=== PATIENT | female | born 1995 | race Caucasian/White ===

== ENCOUNTER 2018-11-05 15:28 | Emergency (ER) | payer OTHER ==
[2018-11-05] MEDS ORDERED: MORPHINE 2 MG/ML SYR IVP ONE (16:10)
[2018-11-05] MEDS ORDERED: NS(*) 0.9% 1000 ML BAG 1,000 ML IV ONE ×2 (16:10→18:25)
[2018-11-05] MEDS ORDERED: ONDANSETRON 4 MG/2 ML VIAL IVP ONE (16:10)
--- NOTE | 2018-11-05 16:11 | ER Report ---
History and Physical Time Seen By MD: 16:05 Hx. of Stated Complaint: headache, general body aches starting sunday. has gotten worse. today she threw up in class. HPI/ROS CHIEF COMPLAINT: vomiting, abdominal pain, multiple complaints. HISTORY OF PRESENT ILLNESS: This is a 23 year old female. She has been feeling poorly for a few days, but today had abdominal pain, right lower quadrant, which has been worsening. Associated with vomiting today, cannot keep fluids down, now with dry heaving. Is on her period and has endometriosis. Having general body aches and headache as well. Mild cough recent and mild shortness of breath. No sore throat. Has no dysuria or urinary frequency. Has felt feverish with chills. No chest pain. Normal bowels. REVIEW OF SYSTEMS: Constitutional: As above. Eyes: No vision changes. ENT: No sore throat. No congestion. Cardiovascular: No chest pain. Respiratory: As above. Gastrointestinal: As above. Genitourinary: As above. Musculoskeletal: As above. Skin: No rashes. Neurological: No numbness. No weakness. Allergies: Coded Allergies: No Known Drug Allergies (Unverified , 11/05/18) Home Meds Active Scripts Ondansetron 4 Mg Odt (ONDANSETRON 4 MG ODT) 4 Mg Tab.rapdis, 4 MG PO Q6H PRN for NAUSEA/VOMITING, #20 TAB 0 Refills Prov:MASOOD KWON MD 11/05/18 Hydrocodone Bit/Acetaminophen (HYDROCODON-ACETAMINOPHEN 5-325) 1 Each Tablet, 1 EACH PO Q4H PRN for PAIN, #12 TAB 0 Refills Prov:MASOOD KWON MD 11/05/18 Reviewed Nurses Notes: Yes Constitutional Vital Sign - Last 24 Hours 11/05/18 11/05/18 11/05/18 11/05/18 15:39 15:39 16:00 16:30 Temp 102.1 Pulse 146 131 131 Resp 16 18 15 B/P (MAP) 136/95 136/95 (109) 134/89 (104) 109/68 (82) Pulse Ox 93 92 90 O2 Delivery Room Air 11/05/18 11/05/18 11/05/18 11/05/18 16:35 17:30 17:35 18:00 Pulse 129 127 133 Resp 18 17 11 B/P (MAP) 77/63 (68) 103/62 (76) Pulse Ox 92 95 93 11/05/18 11/05/18 18:30 19:30 Pulse 128 118 Resp 21 13 B/P (MAP) 96/70 (79) 129/67 (87) Pulse Ox 93 91 Physical Exam General Appearance: The patient is alert. Mild distress due to pain. Non- toxic in appearance. Eyes: Pupils are equal, round. No pallor, injection or icterus. ENT: Mucous membranes are dry. Normal oral mucosa. Posterior oropharynx is normal. Neck: Supple and non tender. No lymphadenopathy. Respiratory: Lungs are clear to auscultation. Cardiovascular: Regular rate and rhythm. No murmurs, gallops or rubs. Normal ca pillary refill. No edema. Gastrointestinal: Abdomen is soft, tender mainly in right lower abdomen. Nondistended. Guarding but no rebound. Normal active bowel sounds. Neurological: Alert and oriented x3. No focal neurologic deficits Skin: Warm and dry. No rashes. Musculoskeletal: Extremities are diffusely tender. No tenderness in palpation of the cervical, thoracic and lumbar spine. DIFFERENTIAL DIAGNOSIS: After history and physical exam, differential diagnosis was considered for a patient with abdominal pain, fever, diffuse muscle aches, concern for infectious etiologies such as a viral syndrome versus appendicitis versus endometriosis pain Medical Decision Making Data Points Result Diagram: 11/05/18 1540 11/05/18 1540 Laboratory Hematology Test 11/05/18 15:40 Red Blood Count 5.17 M/uL (4.17-5.56) Mean Corpuscular Volume 87.6 fL (80.0-96.0) Mean Corpuscular Hemoglobin 29.2 pg (26.0-33.0) Mean Corpuscular Hemoglobin Concent 33.3 g/dL (32.0-36.0) Red Cell Distribution Width 14.8 % (11.5-14.5) Mean Platelet Volume 8.1 fL (7.2-11.1) Neutrophils (%) (Auto) 68.0 % (39.4-72.5) Lymphocytes (%) (Auto) 16.2 % (17.6-49.6) Monocytes (%) (Auto) 14.9 % (4.1-12.4) Eosinophils (%) (Auto) 0.1 % (0.4-6.7) Basophils (%) (Auto) 0.8 % (0.3-1.4) Nucleated RBC Relative Count (auto) 0.1 /100WBC Neutrophils # (Auto) 2.7 K/uL (2.0-7.4) Lymphocytes # (Auto) 0.6 K/uL (1.3-3.6) Monocytes # (Auto) 0.6 K/uL (0.3-1.0) Eosinophils # (Auto) 0.0 K/uL (0.0-0.5) Basophils # (Auto) 0.0 K/uL (0.0-0.1) Nucleated RBC Absolute Count (auto) 0.00 K/uL Urine Color Yellow Urine Clarity Cloudy Urine pH 5.0 pH (4.8-9.5) Urine Specific [place] 1.017 Urine Protein 30 mg/dL (NEGATIVE) Urine Glucose (UA) Negative mg/dL (NEGATIVE) Urine Ketones Negative mg/dL (NEGATIVE) Urine Blood Large (NEGATIVE) Urine Nitrite Negative (NEGATIVE) Urine Bilirubin Negative (NEGATIVE) Urine Urobilinogen Negative mg/dL (0.2-1.9) Urine Leukocyte Esterase Negative (NEGATIVE) Urine RBC 563 /HPF (0-2/HPF) Urine WBC 6 /HPF (0-5/HPF) Urine Squamous Epithelial Cells Many /LPF (</=FEW) Urine Bacteria Many /HPF (NONE-FEW) Urine Mucus Few /HPF (NONE-FEW) Urine Yeast (Budding) Few /HPF Sodium Level 139 mmol/L (137-145) Potassium Level 4.4 mmol/L (3.5-5.0) Chloride Level 109 mmol/L (98-107) Carbon Dioxide Level 20 mmol/L (22-31) Blood Urea Nitrogen 11 mg/dl (7-18) Creatinine 0.90 mg/dl (0.52-1.04) Glomerular Filtration Rate Calc > 60.0 Random Glucose 106 mg/dl (75-110) Lactate 1.7 mmol/L (0.7-2.1) Calcium Level 9.0 mg/dl (8.4-10.2) Total Bilirubin 0.7 mg/dl (0.2-1.3) Aspartate Amino Transf (AST/SGOT) 28 U/L (0-35) Alanine Aminotransferase (ALT/SGPT) 25 U/L (0-56) Alkaline Phosphatase 77 U/L (0-126) Total Protein 7.4 g/dl (6.3-8.2) Albumin 4.7 g/dl (3.5-5.0) Amylase Level 43 U/L (0-110) Lipase 81 U/L (23-300) Human Chorionic Gonadotropin, Qual Negative (NEGATIVE) Influenza Virus Type A (PCR) Negative (NEGATIVE) Influenza Virus Type B (PCR) Negative (NEGATIVE) Chemistry Test 11/05/18 15:40 White Blood Count 4.0 k/uL (4.5-11.0) Red Blood Count 5.17 M/uL (4.17-5.56) Hemoglobin 15.1 g/dL (12.0-16.0) Hematocrit 45.3 % (34.0-47.0) Mean Corpuscular Volume 87.6 fL (80.0-96.0) Mean Corpuscular Hemoglobin 29.2 pg (26.0-33.0) Mean Corpuscular Hemoglobin Concent 33.3 g/dL (32.0-36.0) Red Cell Distribution Width 14.8 % (11.5-14.5) Platelet Count 185 K/uL (150-450) Mean Platelet Volume 8.1 fL (7.2-11.1) Neutrophils (%) (Auto) 68.0 % (39.4-72.5) Lymphocytes (%) (Auto) 16.2 % (17.6-49.6) Monocytes (%) (Auto) 14.9 % (4.1-12.4) Eosinophils (%) (Auto) 0.1 % (0.4-6.7) Basophils (%) (Auto) 0.8 % (0.3-1.4) Nucleated RBC Relative Count (auto) 0.1 /100WBC Neutrophils # (Auto) 2.7 K/uL (2.0-7.4) Lymphocytes # (Auto) 0.6 K/uL (1.3-3.6) Monocytes # (Auto) 0.6 K/uL (0.3-1.0) Eosinophils # (Auto) 0.0 K/uL (0.0-0.5) Basophils # (Auto) 0.0 K/uL (0.0-0.1) Nucleated RBC Absolute Count (auto) 0.00 K/uL Urine Color Yellow Urine Clarity Cloudy Urine pH 5.0 pH (4.8-9.5) Urine Specific [place] 1.017 Urine Protein 30 mg/dL (NEGATIVE) Urine Glucose (UA) Negative mg/dL (NEGATIVE) Urine Ketones Negative mg/dL (NEGATIVE) Urine Blood Large (NEGATIVE) Urine Nitrite Negative (NEGATIVE) Urine Bilirubin Negative (NEGATIVE) Urine Urobilinogen Negative mg/dL (0.2-1.9) Urine Leukocyte Esterase Negative (NEGATIVE) Urine RBC 563 /HPF (0-2/HPF) Urine WBC 6 /HPF (0-5/HPF) Urine Squamous Epithelial Cells Many /LPF (</=FEW) Urine Bacteria Many /HPF (NONE-FEW) Urine Mucus Few /HPF (NONE-FEW) Urine Yeast (Budding) Few /HPF Glomerular Filtration Rate Calc > 60.0 Lactate 1.7 mmol/L (0.7-2.1) Calcium Level 9.0 mg/dl (8.4-10.2) Total Bilirubin 0.7 mg/dl (0.2-1.3) Aspartate Amino Transf (AST/SGOT) 28 U/L (0-35) Alanine Aminotransferase (ALT/SGPT) 25 U/L (0-56) Alkaline Phosphatase 77 U/L (0-126) Total Protein 7.4 g/dl (6.3-8.2) Albumin 4.7 g/dl (3.5-5.0) Amylase Level 43 U/L (0-110) Lipase 81 U/L (23-300) Human Chorionic Gonadotropin, Qual Negative (NEGATIVE) Influenza Virus Type A (PCR) Negative (NEGATIVE) Influenza Virus Type B (PCR) Negative (NEGATIVE) Urinalysis Test 11/05/18 15:40 Urine Color Yellow Urine Clarity Cloudy Urine pH 5.0 pH (4.8-9.5) Urine Specific [place] 1.017 Urine Protein 30 mg/dL (NEGATIVE) Urine Glucose (UA) Negative mg/dL (NEGATIVE) Urine Ketones Negative mg/dL (NEGATIVE) Urine Blood Large (NEGATIVE) Urine Nitrite Negative (NEGATIVE) Urine Bilirubin Negative (NEGATIVE) Urine Urobilinogen Negative mg/dL (0.2-1.9) Urine Leukocyte Esterase Negative (NEGATIVE) Urine RBC 563 /HPF (0-2/HPF) Urine WBC 6 /HPF (0-5/HPF) Urine Squamous Epithelial Cells Many /LPF (</=FEW) Urine Bacteria Many /HPF (NONE-FEW) Urine Mucus Few /HPF (NONE-FEW) Urine Yeast (Budding) Few /HPF Microbiology Microbiology Date/Time Source Procedure Growth Status 11/05/18 15:45 Blood Blood Culture - Preliminary NO GROWTH AFTER 2 DAYS, REINCUBATED Resulted 11/05/18 15:40 Blood Peripheral Draw Blood Culture - Preliminary NO GROWTH AFTER 2 DAYS, REINCUBATED Resulted EKG/Imaging Imaging EXAMINATION: CT abdomen and pelvis with IV contrast HISTORY: Abdominal pain, worse right lower quadrant. TECHNIQUE: Axial CT images of the abdomen and pelvis were obtained with IV contrast, with coronal and sagittal 2D reconstructed images. One of the following dose optimization techniques was utilized in the performance of this exam: Automated exposure control; adjustment of the mA and/or kV according to the patient's size; or use of an iterative reconst ruction technique. Specific details can be referenced in the facility's radiology CT exam operational policy. Contrast: 75 mL of IV Isovue-370. COMPARISON: None. FINDINGS: Liver: Negative. Gallbladder and bile ducts: Negative. Spleen: Negative. Pancreas: Negative. Adrenal glands: Negative. Kidneys: The kidneys enhance normally with normal size and morphology. No hydronephrosis. No definite renal calculi, though sensitivity is reduced by excreted contrast material in the collecting systems. Normal course and caliber of the ureters. Bowel and peritoneum: The small bowel and colon are normal in caliber, without evidence of obstruction or any focal inflammatory process. Normal appendix in the right lower quadrant. No free fluid or free intraperitoneal air. Pelvic structures: Uterus and adnexal structures are grossly unremarkable by CT. No large adnexal cyst in the pelvis. Lymph node assessment: Negative. Vessels: Negative. Musculoskeletal: Negative. Body wall: Negative. Lung bases: Negative. IMPRESSION: 1. No CT evidence of acute intra-abdominal pathology. No specific source of abdominal pain is identified. 2. Normal appendix. Report Dictated By: Donny Argueta MD at 11/05/2018 5:33 PM ED Course/Re-evaluation Clinical Indication for ER IV: Hydration, IV Access ED Course After initial evaluation, the patient did appear a little dehydrated. We gave her a liter of normal saline, Zofran 4 mg IV. Also given morphine 2 mg IV for pain. Labs, urinalysis, CT scan of the abdomen and pelvis obtained. No acute disease noted on CT scan. Signs of dehydration on labs. Reviewed all this with the patient. Patient felt a lot better. Second liter of saline given Decision to Disposition Date: Nov 05, 2018 Decision to Disposition Time: 18:24 Depart Departure Latest Vital Signs Vital Signs Date Time Temp Pulse Resp B/P (MAP) Pulse Ox O2 Delivery O2 Flow Rate FiO2 11/05/18 19:30 118 13 129/67 (87) 91 11/05/18 15:39 102.1 Room Air Impression: Primary Impression: Abdominal pain Condition: Improved Disposition: HOME OR SELF-CARE New Scripts Ondansetron 4 Mg Odt (ONDANSETRON 4 MG ODT) 4 Mg Tab.rapdis 4 MG PO Q6H PRN for NAUSEA/VOMITING, #20 TAB 0 Refills Prov: MASOOD KWON MD 11/05/18 Hydrocodone Bit/Acetaminophen (HYDROCODON-ACETAMINOPHEN 5-325) 1 Each Tablet 1 EACH PO Q4H PRN for PAIN, #12 TAB 0 Refills Prov: MASOOD KWON MD 11/05/18 Patient Instructions: Acute Abdominal Pain (ED) Additional Instructions: Workup today was negative for acute cause of pain and other symptoms. Likely viral syndrome, but could be combined with endometriosis. No sign of appendicitis or other intra-abdominal process. Labs unremarkable. Lortab 5/325, one every 4 hours as needed for severe pain. Zofran 4mg, one every 6 hours as needed for nausea. Ibuprofen 200mg over the counter tablets, take 3 tablets every 8 hours as needed for pain. We usually recommend follow-up with the next 24 to 48 hours if not improving. Follow-up with your regular doctor within the next 1-2 weeks. Consider evaluation by gastroenterology if still having abdominal problems. Return to the ER for worsening fevers, nausea and vomiting, worsening pain. Problem Qualifiers Primary Impression: Abdominal pain Abdominal location: right lower quadrant Qualified Codes: R10.31 - Right lower quadrant pain MASOOD KWON MD Nov 05, 2018 16:11
[2018-11-05 16:25] LABS: PLATELET COUNT, AUTOMATED 185 K/uL (150-450)
[2018-11-05] MEDS ORDERED: IOPAMIDOL 76% 150 ML INFUS BTL 150 ML ONE (16:31)
--- NOTE | 2018-11-05 17:48 | RADIOLOGY IMAGING REPORT ---
FACILITY: [facility] - [place] PATIENT NAME: Veronica Simpson : 1995 MR: [id number] V: [id number] EXAM DATE: ORDERING PHYSICIAN: MASOOD KWON TECHNOLOGIST: Location: [facility] [place] Patient: Veronica Simpson : 1995 Visit/Account:[id number] Date of Sevice: 11/05/2018 EXAMINATION: CT abdomen and pelvis with IV contrast HISTORY: Abdominal pain, worse right lower quadrant. TECHNIQUE: Axial CT images of the abdomen and pelvis were obtained with IV contrast, with coronal a nd sagittal 2D reconstructed images. One of the following dose optimization techniques was utilized in the performance of this exam: Autom ated exposure control; adjustment of the mA and/or kV according to the patient's size; or use of an i terative reconstruction technique. Specific details can be referenced in the facility's radiology C T exam operational policy. Contrast: 75 mL of IV Isovue-370. COMPARISON: None. FINDINGS: Liver: Negative. Gallbladder and bile ducts: Negative. Spleen: Negative. Pancreas: Negative. Adrenal glands: Negative. Kidneys: The kidneys enhance normally with normal size and morphology. No hydronephrosis. No definit e renal calculi, though sensitivity is reduced by excreted contrast material in the collecting system s. Normal course and caliber of the ureters. Bowel and peritoneum: The small bowel and colon are normal in caliber, without evidence of obstructi on or any focal inflammatory process. Normal appendix in the right lower quadrant. No free fluid or f ree intraperitoneal air. Pelvic structures: Uterus and adnexal structures are grossly unremarkable by CT. No large adnexal cyst in the pelvis. Lymph node assessment: Negative. Vessels: Negative. Musculoskeletal: Negative. Body wall: Negative. Lung bases: Negative. IMPRESSION: 1. No CT evidence of acute intra-abdominal pathology. No specific source of abdominal pain is identif ied. 2. Normal appendix. Report Dictated By: Donny Argueta MD at 11/05/2018 5:33 PM Report E-Signed By: Donny Argueta MD at 11/05/2018 5:44 PM WSN:[id number]
[2018-11-05] MEDS ORDERED: ACETAMINOPHEN 500 MG TAB PO ONE (18:25)
[2018-11-05] MEDS ORDERED: LOR5/325 PO (18:29)
[2018-11-05] MEDS ORDERED: ONDA4TAB9 PO (18:29)
[2018-11-05] MEDS ORDERED: ACET/HYDROC 5/325MG TH ER ONLY 2 TAB/BOTTLE PO ONE (18:30)
[2018-11-05] MEDS ORDERED: ONDANSETRON 4 MG ODT TH SL ONE (18:30)
[2018-11-05 19:30] VITALS: BP 129/67
== END 2018-11-05 20:00 | disposition home or self-care (01) ==
LOC: ER 15:49
DX: R10.31 Right lower quadrant pain (principal)
CPT/HCPCS: 74177; 81001; 82150; 83605; 83690; 84703; 85025; 87040; 87502; 96361; 96374; 96375; 99284; J2270; J2405; J7030; Q9967; S0119; 82040; 82247; 82310; 82374; 82435; 82565; 82947; 84075; 84132; 84155; 84295; 84450; 84460; 84520